=== PATIENT | male | born 1970 | race Caucasian/White ===

== ENCOUNTER 2019-12-06 17:30 | Emergency (ER) | payer MEDICARE ==
[~2019-12-06] VITALS: Ht 182.9 cm; Wt 81.8 kg
[2019-12-06 17:38] VITALS: BP 138/85
--- NOTE | 2019-12-06 18:44 | NUR ---
pt was in [employer] and opted to leave right after dc paperwork.
== END 2019-12-06 18:46 | disposition home or self-care (01) ==
LOC: ER 17:31
DX: S80.212A Abrasion, left knee, initial encounter (principal); F10.929 Alcohol use, unspecified with intoxication, unspecified; R07.89 Other chest pain; V49.88XA Car occupant (driver) (passenger) injured in other specified transport accidents, initial encounter; Y93.89 Activity, other specified; Y92.413 State road as the place of occurrence of the external cause; Y99.9 Unspecified external cause status; Y90.9 Presence of alcohol in blood, level not specified
CPT/HCPCS: 71045; 99283